=== PATIENT | female | born 1985 | race American Indian/Alaskan Native ===

== ENCOUNTER 2019-03-22 15:30 | Observation (INO) | payer OTHER ==
--- NOTE | 2019-03-22 15:50 | Emergency Department Report ---
Blank Doc - Documentation Documentation: 34-year-old female that presents with weakness, dizziness, SOB, and vaginal di scharge. This initial assessment/diagnostic orders/clinical plan/treatment(s) is/are subject to change based on patient's health status, clinical progression and re- assessment by fellow clinical providers in the ED. Further treatment and workup at subsequent clinical providers discretion. Patient/guardians urged not to elope from the ED as their condition may be serious if not clinically assessed and managed. Initial orders include: 1- Patient sent to [facility] for further evaluation and treatment 2- EKG 3- labs 4- UA
[2019-03-22 16:30] LABS: Mean Corpuscular HGB Conc 35 % (30-34); Platelet Count 198 K/mm3 (140-440); Red Blood Count 1.55 M/mm3 (3.65-5.03)
[2019-03-22 16:35] LABS: Hematocrit 17.2 % (30.3-42.9); Mean Corpuscular Volume 111 fl (79-97); Red Cell Distribution Width 36.5 % (13.2-15.2)
[2019-03-22 16:54] LABS: Alanine Aminotransferase 32 units/L (7-56); Albumin 4.5 g/dL (3.9-5); BUN/Creatinine Ratio 13; Blood Urea Nitrogen 10 mg/dL (7-17); Calcium 9.4 mg/dL (8.4-10.2); Hemolysis Index 8
[2019-03-22 18:06] LABS: Basophils % (Manual) 0 % (0.0-1.8); Total Cells Counted 100
[2019-03-22 18:08] LABS: Anisocytosis 2+; Platelet Estimate Consistent w Auto
[2019-03-22 18:09] LABS: Macrocytosis 1+; Tear Drop Cells 1+
[2019-03-22] MEDS ORDERED: SODIUM CHLORIDE 0.9% 500 ML 500 ML IV ONE (19:04)
[2019-03-22 19:16] LABS: HCG Qualitative,Urine Negative (Negative)
[2019-03-22 19:17] LABS: Bacteria,Urine 2+ /HPF (Negative); Bilirubin,Urine SM (Negative); Blood,Urine SM (Negative); Color,Urine Amber (Yellow); Mucus,Urine 3+ /HPF
[2019-03-22 19:26] LABS: Ictotest,Urine Negative (Negative)
[2019-03-22] MEDS ORDERED: cefTRIAXone/NS 1 GM/50 ML 1 GM/50 ML BAG IV ONE (19:51)
--- NOTE | 2019-03-22 19:53 | Emergency Department Report ---
ED Shortness of Breath HPI - General Chief Complaint: Dyspnea/Respdistress Stated Complaint: SARAH/COUGH/VAGINAL DISCHARGE Time Seen by Provider: 03/22/19 15:48 Source: patient, EMS Mode of arrival: Ambulatory Limitations: No Limitations - History of Present Illness Initial Comments: 34 year old female with no known past medical history presents to the hospital complaining additionally exertion for the past 4 days and vaginal discharge times one week. Dyspnea is worse on exertion. She denies chest pain, calf tenderness, history of PE/DVT, control/hormonal therapy, iron deficiency anemia, melena, hematochezia, or heavy menses. Last menstrual cycle was 02/26/2019. Patient complains of malodorous yellow discharge times one week. She is sexually active with 1 partner and occasionally uses condoms. - Related Data Allergies Allergy/AdvReac Type Severity Reaction Status Date / Time No Known Allergies Allergy Unverified 03/22/19 15:42 ED Review of Systems ROS: Stated complaint: SARAH/COUGH/VAGINAL DISCHARGE Other details as noted in HPI Comment: All other systems reviewed and negative ED Past Medical Hx - Past Medical History Previous Medical History?: No - Surgical History Additional Surgical History: - Social History Smoking Status: Never Smoker Substance Use Type: None ED Physical Exam - General Limitations: No Limitations - Other Other exam information: General: No acute distress Head: Atraumatic Eyes: normal appearance ENT: Moist mucous membranes Neck: Normal appearance, no midline tenderness Chest: Clear to auscultation bilaterally CV: Regular rate and rhythm Abdomen: Soft, normal bowel sounds, nontender, nondistended, no rebound or guarding Rectal: Guaiac negative brown stool : White vaginal discharge, no CMT or adnexal tenderness Back: Normal inspection Extremity: Normal inspection infection, full range of motion Neuro: Alert O x 3, no facial asymmetry, speech clear, no gross motor sensory deficit Psych: Appropriate behavior Skin: No rash ED Course Vital Signs 03/22/19 03/22/19 03/22/19 15:51 18:55 19:16 Temperature 98.0 F Pulse Rate 90 87 81 Respiratory 18 16 14 Rate Blood Pressure 109/59 103/57 Blood Pressure 103/57 [Left] O2 Sat by Pulse 100 100 Oximetry 03/22/19 19:45 Temperature Pulse Rate 85 Respiratory 16 Rate Blood Pressure 102/41 Blood Pressure [Left] O2 Sat by Pulse 100 Oximetry ED Medical Decision Making - Lab Data Result diagrams: 03/22/19 16:13 03/22/19 16:13 Lab Results 03/22/19 03/22/19 03/22/19 Range/Units 16:13 16:13 Unknown WBC 5.2 (4.5-11.0) K/mm3 RBC 1.55 L (3.65-5.03) M/mm3 Hgb 6.0 L (10.1-14.3) gm/dl Hct 17.2 L* (30.3-42.9) % MCV 111 H (79-97) fl MCH 39 H (28-32) pg MCHC 35 H (30-34) % RDW 36.5 H (13.2-15.2) % Plt Count 198 (140-440) K/mm3 Add Manual Diff Complete Total Counted 100 Seg Neuts % (Manual) 71.0 H (40.0-70.0) % Band Neutrophils % 0 % Lymphocytes % (Manual) 26.0 (13.4-35.0) % Reactive Lymphs % (Man) 0 % Monocytes % (Manual) 2.0 (0.0-7.3) % Eosinophils % (Manual) 1.0 (0.0-4.3) % Basophils % (Manual) 0 (0.0-1.8) % Metamyelocytes % 0 % Myelocytes % 0 % Promyelocytes % 0 % Blast Cells % 0 % Nucleated RBC % Not Reportable Seg Neutrophils # Man 3.7 (1.8-7.7) K/mm3 Band Neutrophils # 0.0 K/mm3 Lymphocytes # (Manual) 1.4 (1.2-5.4) K/mm3 Abs React Lymphs (Man) 0.0 K/mm3 Monocytes # (Manual) 0.1 (0.0-0.8) K/mm3 Eosinophils # (Manual) 0.1 (0.0-0.4) K/mm3 Basophils # (Manual) 0.0 (0.0-0.1) K/mm3 Metamyelocytes # 0.0 K/mm3 Myelocytes # 0.0 K/mm3 Promyelocytes # 0.0 K/mm3 Blast Cells # 0.0 K/mm3 WBC Morphology Not Reportable Hypersegmented Neuts Not Reportable Hyposegmented Neuts Not Reportable Hypogranular Neuts Not Reportable Smudge Cells Not Reportable Toxic Granulation Not Reportable Toxic Vacuolation Not Reportable Dohle Bodies Not Reportable Pelger-Huet Anomaly Not Reportable Justin Rods Not Reportable Platelet Estimate Consistent w auto Clumped Platelets Not Reportable Plt Clumps, EDTA Not Reportable Large Platelets Not Reportable Giant Platelets Not Reportable Platelet Satelliting Not Reportable Plt Morphology Comment Not Reportable RBC Morphology Not Reportable Dimorphic RBCs Not Reportable Polychromasia Not Reportable Hypochromasia Not Reportable Poikilocytosis Not Reportable Anisocytosis 2+ Microcytosis Few Macrocytosis 1+ Spherocytes Not Reportable Pappenheimer Bodies Not Reportable Sickle Cells Not Reportable Target Cells Not Reportable Tear Drop Cells 1+ Ovalocytes Not Reportable Helmet Cells Not Reportable Alejandro-Marianne Bodies Not Reportable [place] Rings Not Reportable Maria L Cells Not Reportable Bite Cells Not Reportable Crenated Cell Not Reportable Elliptocytes 1+ Acanthocytes (Spur) Not Reportable Rouleaux Not Reportable Hemoglobin C Crystals Not Reportable Schistocytes Not Reportable Malaria parasites Not Reportable Alexis Bodies Not Reportable Hem Pathologist Commnt No Sodium 140 (137-145) mmol/L Potassium 3.6 (3.6-5.0) mmol/L Chloride 102.2 (98-107) mmol/L Carbon Dioxide 20 L (22-30) mmol/L Anion Gap 21 mmol/L BUN 10 (7-17) mg/dL Creatinine 0.8 (0.7-1.2) mg/dL Estimated GFR > 60 ml/min BUN/Creatinine Ratio 13 % Glucose 93 (65-100) mg/dL Calcium 9.4 (8.4-10.2) mg/dL Total Bilirubin 1.30 H (0.1-1.2) mg/dL AST 76 H (5-40) units/L ALT 32 (7-56) units/L Alkaline Phosphatase 41 (35-129) units/L Total Protein 7.9 (6.3-8.2) g/dL Albumin 4.5 (3.9-5) g/dL Albumin/Globulin Ratio 1.3 % Urine Color Jackie (Yellow) Urine Turbidity Slightly-cloudy (Clear) Urine pH 5.0 (5.0-7.0) Ur Specific [place] 1.023 (1.003-1.030) Urine Protein 100 mg/dl (Negative) mg/dL Urine Glucose (UA) Neg (Negative) mg/dL Urine Ketones 20 (Negative) mg/dL Urine Blood Sm (Negative) Urine Nitrite Pos (Negative) Ur Reducing Substances Not Reportable Urine Bilirubin Sm (Negative) Urine Ictotest Negative (Negative) Urine Urobilinogen 4.0 (<2.0) mg/dL Ur Leukocyte Esterase Tr (Negative) Urine WBC (Auto) 11.0 H (0.0-6.0) /HPF Urine RBC (Auto) 1.0 (0.0-6.0) /HPF U Epithel Cells (Auto) 3.0 (0-13.0) /HPF Urine Bacteria (Auto) 2+ (Negative) /HPF Urine Mucus 3+ /HPF Urine HCG, Qual Negative (Negative) - Medical Decision Making Patient symptomatic anemia generalized weakness and dyspnea on exertion. 2 units of PRBC ordered. Guaiac negative without signs of acute blood loss. UA positive for UTI Rocephin ordered po flagyl initiated for bacterial vaginosis Hospitalist to admit, Dr Zepeda informed - Differential Diagnosis anemia, pe, chf, vaginitis, cervicitis Critical Care Time: No Critical care attestation.: If time is entered above; I have spent that time in minutes in the direct care of this critically ill patient, excluding procedure time. ED Disposition Clinical Impression: Symptomatic anemia, UTI (urinary tract infection), Bacterial vaginosis Disposition: OP ADMIT IP TO THIS HOSP Is pt being admited?: Yes Condition: Stable Time of Disposition: 19:53
[2019-03-22 19:58] LABS: Iron 78 ug/dL (37-170); Total Iron Binding Capacity 187 mcg/dL (250-450)
[2019-03-22] MEDS ORDERED: metroNIDAZOLE 500 MG TAB PO ONE (19:59)
--- NOTE | 2019-03-22 20:02 | XRay Report ---
CHEST 2 VIEWS INDICATION / CLINICAL INFORMATION: sob. COMPARISON: None available. FINDINGS: SUPPORT DEVICES: None. HEART / MEDIASTINUM: No significant abnormality. LUNGS / PLEURA: No significant pulmonary or pleural abnormality. No pneumothorax. ADDITIONAL FINDINGS: No significant additional findings. IMPRESSION: 1. No acute findings. Signer Name: Yumiko Abdul MD Signed: 03/22/2019 7:58 PM Workstation Name: [id number]
[2019-03-22] MEDS ORDERED: SULFAMETHOXAZOLE/TRIMETHOPRIM 800/160MG DS TAB PO ONE (20:06)
[2019-03-22] MEDS ORDERED: ONDANSETRON 4 MG/2 ML INJ IV PRN (21:27)
[2019-03-22] MEDS ORDERED: ACETAMINOPHEN 325 MG TAB PO PRN (21:27)
[2019-03-22] MEDS ORDERED: ALBUTEROL 2.5 MG/3 ML NEBU IH PRN (21:27)
--- NOTE | 2019-03-22 21:31 | History and Physical Report ---
History of Present Illness Date of examination: 03/22/19 Date of admission: 03/22/19 19:54 Chief complaint: SOB, Weakness History of present illness: 34-year-old -Romanian female with no significant past medical history who presents to [facility] ED with complaints of shortness of breath with exertion, generalized weakness for the past 4 days and malodorous vaginal which is yellow at times for the past week. Pt states that over the past 4 days she has experienced SOB with exertion and generalized weakness. Her weakness has gotten worse and she was unable to go to work today for do anything. Denies hx anemia, CP, calf pain, fever, hemoptysis, or hematemesis. Additionally she complains of malodorous vaginal which is yellow at times. Pt states that she is sexually active with one partner with occasional use of condoms. Denies vaginal itching, dysuria, or pyuria. Past History Past Medical History: No medical history Past Surgical History: (x2), Other Social history: lives with family. denies: smoking, alcohol abuse Family history: no significant family history Medications and Allergies Allergies Allergy/AdvReac Type Severity Reaction Status Date / Time Penicillins Allergy Unknown Verified 03/22/19 20:05 Review of Systems All systems: negative Constitutional: fatigue, weakness Cardiovascular: dyspnea on exertion Respiratory: cough Genitourinary Female: vaginal discharge (Malodorous yellow at times discharge) Exam - Physical Exam Narrative exam: Physical exam General appearance: Present: Fatigued looking, no acute distress, awake, oriented x3, adult -Romanian female - EENT Eyes: Present: PERRL, EOM intact ENT: hearing intact, normal dentition - Neck Neck: Present: supple, normal ROM - Respiratory Respiratory effort: Non-labored Respiratory: Clear throughout - Cardiovascular Heart rate: 80 (bpm) Rhythm: Sinus sinus Heart Sounds: Present: S1 & S2. Absent: rub, click - Extremities Extremities: no ischemia, pulses intact, - Peripheral Assessment Peripheral Pulses: within normal limits - Abdominal General gastrointestinal: soft, non-tender, normal bowel sounds - Integumentary Integumentary: Present: warm, dry - Musculoskeletal Musculoskeletal: Able to move all extremities, generalized weakness -Neurological Neurological: CN II-XII intact - Psychiatric Psychiatric: cooperative - Constitutional Vitals: Temp Pulse Resp BP Pulse Ox 98.0 F 85 16 102/41 100 03/22/19 15:51 03/22/19 19:45 03/22/19 19:45 03/22/19 19:45 03/22/19 19:45 Results - Labs CBC & Chem 7: 03/22/19 16:13 03/22/19 16:13 Labs: Laboratory Last Values WBC 5.2 K/mm3 (4.5-11.0) 03/22/19 16:13 RBC 1.55 M/mm3 (3.65-5.03) L 03/22/19 16:13 Hgb 6.0 gm/dl (10.1-14.3) L 03/22/19 16:13 Hct 17.2 % (30.3-42.9) L* 03/22/19 16:13 MCV 111 fl (79-97) H 03/22/19 16:13 MCH 39 pg (28-32) H 03/22/19 16:13 MCHC 35 % (30-34) H 03/22/19 16:13 RDW 36.5 % (13.2-15.2) H 03/22/19 16:13 Plt Count 198 K/mm3 (140-440) 03/22/19 16:13 Add Manual Diff Complete 03/22/19 16:13 Total Counted 100 03/22/19 16:13 Seg Neuts % (Manual) 71.0 % (40.0-70.0) H 03/22/19 16:13 Band Neutrophils % 0 % 03/22/19 16:13 Lymphocytes % (Manual) 26.0 % (13.4-35.0) 03/22/19 16:13 Reactive Lymphs % (Man) 0 % 03/22/19 16:13 Monocytes % (Manual) 2.0 % (0.0-7.3) 03/22/19 16:13 Eosinophils % (Manual) 1.0 % (0.0-4.3) 03/22/19 16:13 Basophils % (Manual) 0 % (0.0-1.8) 03/22/19 16:13 Metamyelocytes % 0 % 03/22/19 16:13 Myelocytes % 0 % 03/22/19 16:13 Promyelocytes % 0 % 03/22/19 16:13 Blast Cells % 0 % 03/22/19 16:13 Nucleated RBC % Not Reportable 03/22/19 16:13 Seg Neutrophils # Man 3.7 K/mm3 (1.8-7.7) 03/22/19 16:13 Band Neutrophils # 0.0 K/mm3 03/22/19 16:13 Lymphocytes # (Manual) 1.4 K/mm3 (1.2-5.4) 03/22/19 16:13 Abs React Lymphs (Man) 0.0 K/mm3 03/22/19 16:13 Monocytes # (Manual) 0.1 K/mm3 (0.0-0.8) 03/22/19 16:13 Eosinophils # (Manual) 0.1 K/mm3 (0.0-0.4) 03/22/19 16:13 Basophils # (Manual) 0.0 K/mm3 (0.0-0.1) 03/22/19 16:13 Metamyelocytes # 0.0 K/mm3 03/22/19 16:13 Myelocytes # 0.0 K/mm3 03/22/19 16:13 Promyelocytes # 0.0 K/mm3 03/22/19 16:13 Blast Cells # 0.0 K/mm3 03/22/19 16:13 WBC Morphology Not Reportable 03/22/19 16:13 Hypersegmented Neuts Not Reportable 03/22/19 16:13 Hyposegmented Neuts Not Reportable 03/22/19 16:13 Hypogranular Neuts Not Reportable 03/22/19 16:13 Smudge Cells Not Reportable 03/22/19 16:13 Toxic Granulation Not Reportable 03/22/19 16:13 Toxic Vacuolation Not Reportable 03/22/19 16:13 Dohle Bodies Not Reportable 03/22/19 16:13 Pelger-Huet Anomaly Not Reportable 03/22/19 16:13 Justin Rods Not Reportable 03/22/19 16:13 Platelet Estimate Consistent w auto 03/22/19 16:13 Clumped Platelets Not Reportable 03/22/19 16:13 Plt Clumps, EDTA Not Reportable 03/22/19 16:13 Large Platelets Not Reportable 03/22/19 16:13 Giant Platelets Not Reportable 03/22/19 16:13 Platelet Satelliting Not Reportable 03/22/19 16:13 Plt Morphology Comment Not Reportable 03/22/19 16:13 RBC Morphology Not Reportable 03/22/19 16:13 Dimorphic RBCs Not Reportable 03/22/19 16:13 Polychromasia Not Reportable 03/22/19 16:13 Hypochromasia Not Reportable 03/22/19 16:13 Poikilocytosis Not Reportable 03/22/19 16:13 Anisocytosis 2+ 03/22/19 16:13 Microcytosis Few 03/22/19 16:13 Macrocytosis 1+ 03/22/19 16:13 Spherocytes Not Reportable 03/22/19 16:13 Pappenheimer Bodies Not Reportable 03/22/19 16:13 Sickle Cells Not Reportable 03/22/19 16:13 Target Cells Not Reportable 03/22/19 16:13 Tear Drop Cells 1+ 03/22/19 16:13 Ovalocytes Not Reportable 03/22/19 16:13 Helmet Cells Not Reportable 03/22/19 16:13 Alejandro-Saunemin Bodies Not Reportable 03/22/19 16:13 [place] Rings Not Reportable 03/22/19 16:13 Maria L Cells Not Reportable 03/22/19 16:13 Bite Cells Not Reportable 03/22/19 16:13 Crenated Cell Not Reportable 03/22/19 16:13 Elliptocytes 1+ 03/22/19 16:13 Acanthocytes (Spur) Not Reportable 03/22/19 16:13 Rouleaux Not Reportable 03/22/19 16:13 Hemoglobin C Crystals Not Reportable 03/22/19 16:13 Schistocytes Not Reportable 03/22/19 16:13 Malaria parasites Not Reportable 03/22/19 16:13 Alexis Bodies Not Reportable 03/22/19 16:13 Hem Pathologist Commnt No 03/22/19 16:13 Sodium 140 mmol/L (137-145) 03/22/19 16:13 Potassium 3.6 mmol/L (3.6-5.0) 03/22/19 16:13 Chloride 102.2 mmol/L (98-107) 03/22/19 16:13 Carbon Dioxide 20 mmol/L (22-30) L 03/22/19 16:13 Anion Gap 21 mmol/L 03/22/19 16:13 BUN 10 mg/dL (7-17) 03/22/19 16:13 Creatinine 0.8 mg/dL (0.7-1.2) 03/22/19 16:13 Estimated GFR > 60 ml/min 03/22/19 16:13 BUN/Creatinine Ratio 13 % 03/22/19 16:13 Glucose 93 mg/dL (65-100) 03/22/19 16:13 Calcium 9.4 mg/dL (8.4-10.2) 03/22/19 16:13 Iron 78 ug/dL (37-170) 03/22/19 19:22 TIBC 187 mcg/dL (250-450) L 03/22/19 19:22 Total Bilirubin 1.30 mg/dL (0.1-1.2) H 03/22/19 16:13 AST 76 units/L (5-40) H 03/22/19 16:13 ALT 32 units/L (7-56) 03/22/19 16:13 Alkaline Phosphatase 41 units/L (35-129) 03/22/19 16:13 Total Protein 7.9 g/dL (6.3-8.2) 03/22/19 16:13 Albumin 4.5 g/dL (3.9-5) 03/22/19 16:13 Albumin/Globulin Ratio 1.3 % 03/22/19 16:13 Urine Color Jackie (Yellow) 03/22/19 Unknown Urine Turbidity Slightly-cloudy (Clear) 03/22/19 Unknown Urine pH 5.0 (5.0-7.0) 03/22/19 Unknown Ur Specific [place] 1.023 (1.003-1.030) 03/22/19 Unknown Urine Protein 100 mg/dl mg/dL (Negative) 03/22/19 Unknown Urine Glucose (UA) Neg mg/dL (Negative) 03/22/19 Unknown Urine Ketones 20 mg/dL (Negative) 03/22/19 Unknown Urine Blood Sm (Negative) 03/22/19 Unknown Urine Nitrite Pos (Negative) 03/22/19 Unknown Ur Reducing Substances Not Reportable 03/22/19 Unknown Urine Bilirubin Sm (Negative) 03/22/19 Unknown Urine Ictotest Negative (Negative) 03/22/19 Unknown Urine Urobilinogen 4.0 mg/dL (<2.0) 03/22/19 Unknown Ur Leukocyte Esterase Tr (Negative) 03/22/19 Unknown Urine WBC (Auto) 11.0 /HPF (0.0-6.0) H 03/22/19 Unknown Urine RBC (Auto) 1.0 /HPF (0.0-6.0) 03/22/19 Unknown U Epithel Cells (Auto) 3.0 /HPF (0-13.0) 03/22/19 Unknown Urine Bacteria (Auto) 2+ /HPF (Negative) 03/22/19 Unknown Urine Mucus 3+ /HPF 03/22/19 Unknown Urine HCG, Qual Negative (Negative) 03/22/19 Unknown Blood Type O POSITIVE 03/22/19 19:22 Antibody Screen Positive 03/22/19 19:22 Crossmatch See Detail 03/22/19 19:22 - Imaging and Cardiology Imaging and Cardiology: CXR: FINDINGS: SUPPORT DEVICES: None. HEART / MEDIASTINUM: No significant abnormality LUNGS / PLEURA: No significant pulmonary or pleural abnormality. No pneumothorax. ADDITIONAL FINDINGS: No significant additional findings. IMPRESSION: 1. No acute findings. Assessment and Plan Assessment and plan: 34-year-old -Romanian female with no significant past medical history who presents to [facility] ED with complaints of shortness of breath with exertion, generalized weakness for the past 4 days and malodorous vaginal which is yellow at times for the past week. Pt was found to be anemic and is symptomatic. Will admit for further evaluation and treatment. Anemia -Hemoglobin on admission 6.0 -Symptomatic -2u PRBC ordered in ED -No s/s of active bleeding -Last menstrual cycle 02/26/2019; Denies hx menorrhagia -Continue to monitor hemoglobin -Transfuse as needed Urinary tract infection -UA positive for UTI -Urine wbc 11, Jackie, Slightly cloudy -Urine culture pending -on IV Rocephin Bacterial vaginosis -C/o malodorous vaginal which is yellow at times -Wet prep negative for Trichomonas and yeast -GC and Chlamydia pending -Received p.o. Flagyl in ED -On IV ABX DVT PPX -On SCD's Advance Directives: No VTE prophylaxis?: Mechanical Plan of care discussed with patient/family: Yes
[2019-03-23] MEDS ORDERED: SODIUM CHLORIDE 0.9% 500 ML 500 ML ONE (00:59)
[2019-03-23] MEDS: DOCUSATE SODIUM 100 MG CAP PO SCH ×3 (00:59→21:39)
[2019-03-23 08:44] LABS: Mean Corpuscular HGB Conc 35 % (30-34); Platelet Count 162 K/mm3 (140-440); Red Blood Count 1.32 M/mm3 (3.65-5.03)
[2019-03-23 08:49] LABS: Hemoglobin 5.3 gm/dl (10.1-14.3); Mean Corpuscular Volume 113 fl (79-97); Red Cell Distribution Width 37.3 % (13.2-15.2)
[2019-03-23 09:08] LABS: BUN/Creatinine Ratio 11; Blood Urea Nitrogen 9 mg/dL (7-17); Calcium 8.8 mg/dL (8.4-10.2); Hemolysis Index 3
[2019-03-23 09:12] LABS: Bilirubin,Direct 0.2 mg/dL (0-0.2)
[2019-03-23] MEDS ORDERED: cefTRIAXone/NS 1 GM/50 ML 1 GM/50 ML BAG IV SCH (10:00)
[2019-03-23 10:05] LABS: Anisocytosis 3+; Basophils % (Manual) 0 % (0.0-1.8); Eosinophils % (Manual) 0 % (0.0-4.3); Macrocytosis 1+; Monocytes % (Manual) 0 % (0.0-7.3); Total Cells Counted 100
[2019-03-23 10:06] LABS: Tear Drop Cells 1+
[2019-03-23 10:10] LABS: Platelet Estimate Consistent w Auto
--- NOTE | 2019-03-23 11:12 | Discharge Summary ---
Providers - Providers Date of Admission: 03/22/19 19:54 Attending physician: SHYANNE BOYKIN MD Primary care physician: [facility]ATOR [facility] Hospitalization Reason for admission: anemia Condition: Stable Hospital course: 34-year-old -Mongolian female with no significant past medical history who presents to [facility] ED with complaints of shortness of breath with exertion, gene ralized weakness for the past 4 days and malodorous vaginal which is yellow at times for the past week. Pt states that over the past 4 days she has experienced SOB with exertion and generalized weakness. Her weakness has gotten worse and she was unable to go to work today for do anything. Denies hx anemia, CP, calf pain, fever, hemoptysis, or hematemesis. Additionally she complains of malodorous vaginal which is yellow at times. Pt states that she is sexually active with one partner with occasional use of condoms. Denies vaginal itching, dysuria, or pyuria. recommended to follow with RN ENDOSCOPY, HEMATOLOGY AND GI Symptomatic anemia -Hemoglobin on admission 6.0 -2u PRBC transfused -No s/s of active bleeding -Last menstrual cycle 02/26/2019; Denies hx menorrhagia -prior transfusion during child 15 years ago, since then has not followed with a doctor. -stressed the importance of following up -clinically stable following transfusion Urinary tract infection -UA positive for UTI -Urine wbc 11, Jackie, Slightly cloudy -Urine culture pending -on IV Rocephin Bacterial vaginosis -C/o malodorous vaginal which is yellow at times -Wet prep negative for Trichomonas and yeast -GC and Chlamydia pending -Received p.o. Flagyl in ED -cultures negative. Discharged on orab abx with flagyl and Augmentin Disposition: DC-01 TO HOME OR SELFCARE Time spent for discharge: 35 mins Core Measure Documentation - Palliative Care Palliative Care/ Comfort Measures: Not Applicable - Core Measures Any of the following diagnoses?: none Exam - Constitutional Vitals: Temp Pulse Resp BP Pulse Ox 98.5 F 84 16 104/51 100 03/23/19 09:59 03/23/19 09:59 03/23/19 09:59 03/23/19 09:59 03/23/19 09:59 General appearance: Present: no acute distress, well-nourished - EENT Eyes: Present: PERRL, EOM intact ENT: hearing intact, clear oral mucosa, dentition normal - Neck Neck: Present: supple, normal ROM - Respiratory Respiratory effort: normal Respiratory: bilateral: CTA - Cardiovascular Rhythm: regular - Extremities Extremities: no ischemia, No edema Peripheral Pulses: within normal limits - Abdominal General gastrointestinal: Present: soft, non-tender, non-distended - Integumentary Integumentary: Present: clear, warm, dry - Musculoskeletal Musculoskeletal: strength equal bilaterally - Psychiatric Psychiatric: appropriate mood/affect, intact judgment & insight - Neurologic Neurologic: CNII-XII intact, moves all extremities - Allied Health Allied health notes reviewed: nursing, social work Plan Activity: advance as tolerated, fall precautions Diet: low fat Special Instructions: record daily BP diary Follow up with: PRIMARY CAREMD [Primary Care Provider] - 7 Days RUBENS DUKES MD [Staff Physician] - 7 Days [facility] [Outside] - 7 Days JADON GARCIA MD [Staff Physician] - 7 Days Forms: STI Treatment and Prevention Prescriptions: Cyanocobalamin (Vitamin B-12) [Vitamin B-12] 2,000 mcg PO DAILY #30 tablet
[2019-03-23 21:52] LABS: Hematocrit 26.5 % (30.3-42.9)
[2019-03-24 00:17] VITALS: BP 97/61
== END 2019-03-24 | disposition home or self-care (01) ==
LOC: ED 15:30 → 3A 19:54
PROVIDERS: ADMIT Internal Medicine; ATTEND Internal Medicine
DX: D64.9 Anemia, unspecified (principal); R06.02 Shortness of breath; N39.0 Urinary tract infection, site not specified; N76.0 Acute vaginitis; Z98.891 History of uterine scar from previous surgery
CPT/HCPCS: 36415; 71046; 80048; 80053; 81001; 81025; 82247; 82248; 82271; 83010; 83550; 85007; 85014; 85018; 85025; 86850; 86870; 86900; 86901; 86920; 86922; 87076; 87086; 87186; 87210; 87591; 93005; 93010; 96365; 99284; G0378; J0696; J7040

== ENCOUNTER 2019-04-09 16:57 | Observation (INO) | payer OTHER ==
--- NOTE | 2019-04-09 17:30 | Emergency Department Report ---
Blank Doc - Documentation Documentation: 34-year-old female that presents with generalized weakness x3 days. This initial assessment/diagnostic orders/clinical plan/treatment(s) is/are subject to change based on patient's health status, clinical progression and re- assessment by fellow clinical providers in the ED. Further treatment and workup at subsequent clinical providers discretion. Patient/guardians urged not to elope from the ED as their condition may be serious if not clinically assessed and managed. Initial orders include: 1- Patient sent to [facility] for further evaluation and treatment 2- labs 3- UA
[2019-04-09 19:24] LABS: Hemoglobin 6.2 gm/dl (10.1-14.3); Mean Corpuscular HGB Conc 36 % (30-34); Mean Corpuscular Volume 92 fl (79-97); Platelet Count 227 K/mm3 (140-440); Red Blood Count 1.89 M/mm3 (3.65-5.03)
[2019-04-09 19:33] LABS: Hematocrit 17.3 % (30.3-42.9)
[2019-04-09 19:44] LABS: BUN/Creatinine Ratio 15; Blood Urea Nitrogen 12 mg/dL (7-17); Calcium 9.5 mg/dL (8.4-10.2); Hemolysis Index 3
--- NOTE | 2019-04-09 20:06 | Emergency Department Report ---
HPI - General Chief Complaint: Weakness Time Seen by Provider: 04/09/19 17:29 - HPI HPI: 34-year-old -M[place]ese female presents to the emergency department with the complaint of a 3 day history of some generalized weakness and fatigue and shortness of breath. The patient has a history of anemia and was admitted to this hospital about 3 weeks ago with similar symptoms and was found to have hemoglobin of 6. She was admitted and had 2 units of packed red blood cells transfused at that time. The patient otherwise says she does not know why she is anemic. She denies any heavy vaginal bleeding or menstrual cycles, rectal bleeding. She denies any fever, chest pain. She has not taken anything for her symptoms prior to presentation. No recent travel or sick contacts at home. She does not have a primary care physician. ED Past Medical Hx - Past Medical History Previous Medical History?: Yes Hx Congestive Heart Failure: No Hx Diabetes: No Hx Asthma: No Hx COPD: No Hx HIV: No Additional medical history: anemia - Surgical History Past Surgical History?: Yes Additional Surgical History: - Social History Smoking Status: Never Smoker Substance Use Type: None - Medications Home Medications: Home Medications Medication Instructions Recorded Confirmed Last Taken Type Cyanocobalamin (Vitamin B-12) 2,000 mcg PO DAILY 04/10/19 04/10/19 Unknown History [Vitamin B-12] ED Review of Systems ROS: Stated complaint: GENERAL WEAKNESS Other details as noted in HPI Comment: All other systems reviewed and negative Constitutional: weakness, other (fatigue). denies: chills, fever Eyes: denies: eye pain, vision change ENT: denies: ear pain, throat pain Respiratory: shortness of breath, SOB with exertion. denies: cough Cardiovascular: denies: chest pain, edema Gastrointestinal: denies: abdominal pain, vomiting Genitourinary: denies: dysuria, discharge Musculoskeletal: denies: back pain, arthralgia Skin: denies: rash, lesions Neurological: denies: headache, numbness, paresthesias Physical Exam - Physical Exam Vital Signs: Vital Signs 04/09/19 17:02 Temperature 98.3 F Pulse Rate 105 H Respiratory 16 Rate Blood Pressure 103/58 O2 Sat by Pulse 97 Oximetry Physical Exam: GENERAL: The patient is well-developed well-nourished. HEENT: Normocephalic. Atraumatic. Patient has moist mucous membranes. EYES: Extraocular motions are intact. Pupils equal and reactive to light bi laterally. Pale conjunctiva. NECK: Supple. Trachea is midline. CHEST/LUNGS: Clear to auscultation. There is no respiratory distress noted. HEART/CARDIOVASCULAR: Regular. There is mild tachycardia. There is no murmur. ABDOMEN: Abdomen is soft, nontender. Patient has normal bowel sounds. There is no abdominal distention. SKIN:Skin is warm and dry. . NEURO: The patient is awake, alert, and oriented. The patient is cooperative. The patient has no focal neurologic deficits. Normal speech. MUSCULOSKELETAL: There is no tenderness or deformity. There is no evidence of acute injury. ED Course Vital Signs 04/09/19 17:02 Temperature 98.3 F Pulse Rate 105 H Respiratory 16 Rate Blood Pressure 103/58 O2 Sat by Pulse 97 Oximetry ED Medical Decision Making - Lab Data Result diagrams: 04/09/19 18:28 04/09/19 18:28 - EKG Data -: EKG Interpreted by Me EKG shows normal: sinus rhythm, axis, intervals, QRS complexes, ST-T waves Rate: normal - EKG Data When compared to previous EKG there are: previous EKG unavailable Interpretation: normal EKG - Radiology Data Radiology results: image reviewed interpreted by me: Chest x-ray does not show any pleural effusions, pneumonia, pneumothorax, focal consolidation, or any other acute process. - Medical Decision Making Patient presents with some nonspecific fatigue and weakness as well as some exertional shortness of breath. She has a history of anemia and received a transfusion about 3 weeks ago at this hospital. Once again, today, the patient has symptomatic anemia with a hemoglobin of 6.2 and a hematocrit of 17 and a ppears to be normocytic. 2 units of packed red blood cells have been ordered for transfusion. Chest x-ray did not show any pneumonia, pneumothorax, pleural effusions, or any other acute process. The rest of the patient's labs have been unremarkable. She will be admitted to the hospital for her transfusion and further evaluation and was accepted for admission by the hospitalist, Dr Diamond. - Differential Diagnosis iron deficiency, B12 deficiency, Beta Thalasemmia Critical Care Time: Yes Critical care time in (mins) excluding proc time.: 31 Critical care attestation.: If time is entered above; I have spent that time in minutes in the direct care of this critically ill patient, excluding procedure time. Critical care time was spent on this patient and doing her initial evaluation, multiple re- evaluations, ordering an interpretation of labs and imaging, ordering of blood for transfusion, discussion with the hospitalist service. Critical Care Time: 31 minutes ED Disposition Clinical Impression: Symptomatic anemia, Anemia requiring transfusions Disposition: OP ADMIT IP TO THIS HOSP Is pt being admited?: Yes Condition: Fair Time of Disposition: 21:24
[2019-04-09 20:35] LABS: Basophils % (Manual) 0 % (0.0-1.8); Eosinophils % (Manual) 0 % (0.0-4.3); Macrocytosis 1+; Myelocytes # (Manual) 0.1 K/mm3; Total Cells Counted 100
[2019-04-09 20:37] LABS: Hypochromasia 2+; Ovalocytes 1+; Tear Drop Cells 1+
[2019-04-09 20:38] LABS: Dimorphic RBC Yes; Large Platelets 1+; Platelet Estimate Consistent w Auto; Schistocytes 1+
[2019-04-09 20:40] LABS: Eosinophils % (Auto) 0.3 % (0.0-4.3); Monocytes # (Auto) 0.3 K/mm3 (0.0-0.8)
[2019-04-09 20:44] LABS: Red Cell Distribution Width > 40.0 % (13.2-15.2)
--- NOTE | 2019-04-09 20:56 | XRay Report ---
CHEST 1 VIEW 8:26 PM INDICATION / CLINICAL INFORMATION: SOB. COMPARISON: 03/22/2019. FINDINGS: SUPPORT DEVICES: None. HEART / MEDIASTINUM: The heart size and pulmonary vasculature are normal. LUNGS / PLEURA: No significant pulmonary or pleural abnormality. No pneumothorax. ADDITIONAL FINDINGS: No significant additional findings. IMPRESSION: No acute abnormality or significant change. Signer Name: Zac Curiel MD Signed: 04/09/2019 8:52 PM Workstation Name: [id number]
[2019-04-09] MEDS ORDERED: ACETAMINOPHEN 325 MG TAB PO PRN (21:54)
[2019-04-09] MEDS ORDERED: ONDANSETRON 4 MG/2 ML INJ IV PRN (21:54)
[2019-04-09] MEDS ORDERED: MAGNESIUM HYDROXIDE (MOM) ORAL LIQD UDC PO PRN (21:54)
--- NOTE | 2019-04-09 22:54 | History and Physical Report ---
History of Present Illness Date of examination: 04/09/19 Date of admission: 04/09/19 21:24 Chief complaint: Generalized weakness fatigue Fatigue History of present illness: 34-year-old female presenting to the emergency room today complaining of shortness of breath and generalized fatigue over the past few days. She has had occasional dizziness and has had recent fall but denies any head injury. She denies any loss of consciousness. She denies any fever or chills and denies any chest pain. Patient was recently diagnosed with anemia and had blood transfusion recently. She does not follow-up with any primary care physician and she has not been worked up for anemia. She denies any heavy menstruation, but indicates that she has had occasional blood stained stool especially when constipated. She denies any hematuria. Past History Past Surgical History: Social history: no significant social history Family history: diabetes (Mother had diabetes), stroke (Mother had stroke), other (Sister has sickle cell trait) Medications and Allergies Allergies Allergy/AdvReac Type Severity Reaction Status Date / Time Penicillins Allergy Unknown Verified 04/09/19 17:02 Home Medications Medication Instructions Recorded Confirmed Last Taken Type Cyanocobalamin (Vitamin B-12) 2,000 mcg PO DAILY 04/10/19 04/10/19 Unknown History [Vitamin B-12] Active Meds: Active Medications Acetaminophen (Tylenol) 650 mg PO Q4H PRN PRN Reason: Pain MILD(1-3)/Fever >100.5/GUTIÉRREZ Magnesium Hydroxide (Milk Of Magnesia) 30 ml PO Q4H PRN PRN Reason: Constipation Ondansetron HCl (Zofran) 4 mg IV Q8H PRN PRN Reason: Nausea And Vomiting Sodium Chloride (Sodium Chloride Flush Syringe 10 Ml) 10 ml IV BID CALLIE Sodium Chloride (Sodium Chloride Flush Syringe 10 Ml) 10 ml IV PRN PRN PRN Reason: LINE FLUSH Review of Systems Constitutional: fatigue, weakness Cardiovascular: lightheadedness, shortness of breath Exam - Constitutional Vitals: Temp Pulse Resp BP Pulse Ox 98.3 F 82 17 103/60 100 04/09/19 17:02 04/09/19 21:57 04/09/19 21:57 04/09/19 21:57 04/09/19 21:57 General appearance: Present: no acute distress, well-nourished - EENT Eyes: Present: PERRL, EOM intact ENT: hearing intact, clear oral mucosa, dentition normal - Neck Neck: Present: supple, normal ROM - Respiratory Respiratory effort: normal Respiratory: bilateral: CTA - Cardiovascular Rhythm: regular Heart Sounds: Present: gallop - Extremities Extremities: no ischemia, pulses symmetrical, No edema, Full ROM Peripheral Pulses: within normal limits - Abdominal General gastrointestinal: Present: soft, non-tender, non-distended - Integumentary Integumentary: Present: clear, warm, dry, pale - Musculoskeletal Musculoskeletal: strength equal bilaterally - Psychiatric Psychiatric: appropriate mood/affect, intact judgment & insight, cooperative - Neurologic Neurologic: CNII-XII intact, moves all extremities Results - Labs CBC & Chem 7: 04/09/19 18:28 04/09/19 18:28 Labs: Abnormal lab results 04/09/19 04/09/19 04/09/19 Range/Units 18:28 18:28 20:28 RBC 1.89 L (3.65-5.03) M/mm3 Hgb 6.2 L (10.1-14.3) gm/dl Hct 17.3 L* (30.3-42.9) % MCH 33 H (28-32) pg MCHC 36 H (30-34) % RDW > 40.0 H (13.2-15.2) % Nucleated RBC % 2.0 H (0.0-0.9) % Carbon Dioxide 18 L (22-30) mmol/L Crossmatch See Detail Assessment and Plan - Patient Problems (1) Symptomatic anemia Current Visit: Yes Status: Acute Plan to address problem: Patient has been typed and crossmatched for blood transfusion. Will monitor CBC. Meanwhile patient will be scheduled for anemia work-up including iron studies, stool Hemoccults, vitamin B12 and folic acid levels. We will schedule hematology evaluation if needed. (2) DVT prophylaxis Current Visit: Yes Status: Acute Plan to address problem: Patient placed on sequential compression device. (3) Full code status Current Visit: Yes Status: Acute
[2019-04-09] MEDS ORDERED: SODIUM CHLORIDE 0.9% 500 ML 500 ML IV ONE (23:50)
[2019-04-09] MEDS: SODIUM CHLORIDE 0.9% 500 ML 500 ML IV ONE (23:53)
[2019-04-10] MEDS: SODIUM CHLORIDE 0.9% 500 ML 500 ML IV ONE (00:11)
[2019-04-10 01:32] LABS: Iron 80 ug/dL (37-170); Total Iron Binding Capacity 189 mcg/dL (250-450)
[2019-04-10 11:16] LABS: Hematocrit 20.2 % (30.3-42.9); Hemoglobin 7.3 gm/dl (10.1-14.3); Mean Corpuscular HGB Conc 36 % (30-34); Mean Corpuscular Volume 90 fl (79-97); Platelet Count 188 K/mm3 (140-440); Red Blood Count 2.25 M/mm3 (3.65-5.03)
[2019-04-10 11:22] LABS: Red Cell Distribution Width > 40.0 % (13.2-15.2)
[2019-04-10 11:29] LABS: INR 1.05 (0.87-1.13)
[2019-04-10 11:30] LABS: Partial Thromboplastin Time 30.7 Sec. (24.2-36.6)
[2019-04-10 11:35] LABS: BUN/Creatinine Ratio 20; Blood Urea Nitrogen 14 mg/dL (7-17); Calcium 8.9 mg/dL (8.4-10.2); Hemolysis Index 14
[2019-04-10 12:05] LABS: Basophils % (Manual) 0 % (0.0-1.8); Eosinophils % (Manual) 0 % (0.0-4.3); Total Cells Counted 100
[2019-04-10 12:06] LABS: Macrocytosis 1+
[2019-04-10 12:07] LABS: Anisocytosis 2+; Hypochromasia Few; Large Platelets Few; Ovalocytes 1+; Platelet Estimate Consistent w Auto; Schistocytes Rare; Tear Drop Cells 1+
[2019-04-10 17:29] LABS: Bacteria,Urine 4+ /HPF (Negative); Bilirubin,Urine NEG (Negative); Blood,Urine LG (Negative); Color,Urine Red (Yellow); Mucus,Urine FEW /HPF
--- NOTE | 2019-04-10 18:05 | Progress Note ---
Assessment and Plan Assessment and plan: --Symptomatic anemia; No history of menorrhagia or vaginal bleeding Patient was admitted last month, recommended [facility], hematology, GI follow-up Patient was not compliant Received 1 unit PRBC Transfuse second unit PRBC when available Closely monitor --Urinary tract infection; empiric antibiotics Follow cultures --Red-colored urine; Urine analysis no RBCs[only 4] --DVT prophylaxis; SCDs Monitor closely and adjust management as needed Plan of care reviewed with the patient and her nurse Disposition; discharge home tomorrow after second unit PRBC Patient needs to see [facility]GER/GI/hematology upon discharge For further evaluation History Interval history: Patient seen and examined medical records reviewed Patient was admitted with severe anemia Received 1 unit of PRBC this morning Patient had similar episodes last month Where her hemoglobin was 5 Improved to 9 after transfusion Patient complains of generalized weakness No vaginal bleeding However urine is red color, urine analysis no RBCs Vital signs reviewed Hospitalist Physical - Constitutional Vitals: Temp Pulse Resp BP Pulse Ox 98.3 F 92 H 16 94/49 100 04/10/19 10:58 04/10/19 10:58 04/10/19 10:58 04/10/19 10:58 04/10/19 10:58 General appearance: Present: no acute distress, well-nourished - EENT Eyes: Present: PERRL, EOM intact - Neck Neck: Present: supple, normal ROM - Respiratory Respiratory effort: normal Respiratory: bilateral: diminished, negative: rales, rhonchi, wheezing - Cardiovascular Rhythm: regular Heart Sounds: Present: S1 & S2 - Extremities Extremities: no ischemia, No edema - Abdominal General gastrointestinal: soft, non-tender, non-distended, normal bowel sounds - Integumentary Integumentary: Present: clear, warm - Psychiatric Psychiatric: appropriate mood/affect, cooperative - Neurologic Neurologic: CNII-XII intact, moves all extremities Results - Labs CBC & Chem 7: 04/10/19 10:56 04/10/19 10:56 Labs: Laboratory Last Values WBC 6.1 K/mm3 (4.5-11.0) 04/10/19 10:56 RBC 2.25 M/mm3 (3.65-5.03) L 04/10/19 10:56 Hgb 7.3 gm/dl (10.1-14.3) L 04/10/19 10:56 Hct 20.2 % (30.3-42.9) L 04/10/19 10:56 MCV 90 fl (79-97) 04/10/19 10:56 MCH 33 pg (28-32) H 04/10/19 10:56 MCHC 36 % (30-34) H 04/10/19 10:56 RDW > 40.0 % (13.2-15.2) H 04/10/19 10:56 Plt Count 188 K/mm3 (140-440) 04/10/19 10:56 [place] % (Auto) 5.0 % (0.0-7.3) 04/09/19 18:28 Eos % (Auto) 0.3 % (0.0-4.3) 04/09/19 18:28 [place] # 0.3 K/mm3 (0.0-0.8) 04/09/19 18:28 Eos # 0.0 K/mm3 (0.0-0.4) 04/09/19 18:28 Baso # 0.0 K/mm3 (0.0-0.1) 04/09/19 18:28 Add Manual Diff Complete 04/10/19 10:56 Total Counted 100 04/10/19 10:56 Seg Neutrophils % 59.3 % (40.0-70.0) 04/09/19 18:28 Seg Neuts % (Manual) 77.0 % (40.0-70.0) H 04/10/19 10:56 Band Neutrophils % 0 % 04/10/19 10:56 Lymphocytes % (Manual) 22.0 % (13.4-35.0) 04/10/19 10:56 Reactive Lymphs % (Man) 0 % 04/10/19 10:56 Monocytes % (Manual) 1.0 % (0.0-7.3) 04/10/19 10:56 Eosinophils % (Manual) 0 % (0.0-4.3) 04/10/19 10:56 Basophils % (Manual) 0 % (0.0-1.8) 04/10/19 10:56 Metamyelocytes % 0 % 04/10/19 10:56 Myelocytes % 0 % 04/10/19 10:56 Promyelocytes % 0 % 04/10/19 10:56 Blast Cells % 0 % 04/10/19 10:56 Nucleated RBC % 1.0 % (0.0-0.9) H 04/10/19 10:56 Seg Neutrophils # 3.0 K/mm3 (1.8-7.7) 04/09/19 18:28 Seg Neutrophils # Man 4.7 K/mm3 (1.8-7.7) 04/10/19 10:56 Band Neutrophils # 0.0 K/mm3 04/10/19 10:56 Lymphocytes # (Manual) 1.3 K/mm3 (1.2-5.4) 04/10/19 10:56 Abs React Lymphs (Man) 0.0 K/mm3 04/10/19 10:56 Monocytes # (Manual) 0.1 K/mm3 (0.0-0.8) 04/10/19 10:56 Eosinophils # (Manual) 0.0 K/mm3 (0.0-0.4) 04/10/19 10:56 Basophils # (Manual) 0.0 K/mm3 (0.0-0.1) 04/10/19 10:56 Metamyelocytes # 0.0 K/mm3 04/10/19 10:56 Myelocytes # 0.0 K/mm3 04/10/19 10:56 Promyelocytes # 0.0 K/mm3 04/10/19 10:56 Blast Cells # 0.0 K/mm3 04/10/19 10:56 WBC Morphology Not Reportable 04/10/19 10:56 Hypersegmented Neuts Not Reportable 04/10/19 10:56 Hyposegmented Neuts Not Reportable 04/10/19 10:56 Hypogranular Neuts Not Reportable 04/10/19 10:56 Smudge Cells Not Reportable 04/10/19 10:56 Toxic Granulation Not Reportable 04/10/19 10:56 Toxic Vacuolation Not Reportable 04/10/19 10:56 Dohle Bodies Not Reportable 04/10/19 10:56 Pelger-Huet Anomaly Not Reportable 04/10/19 10:56 Justin Rods Not Reportable 04/10/19 10:56 Platelet Estimate Consistent w auto 04/10/19 10:56 Clumped Platelets Not Reportable 04/10/19 10:56 Plt Clumps, EDTA Not Reportable 04/10/19 10:56 Large Platelets Few 04/10/19 10:56 Giant Platelets Not Reportable 04/10/19 10:56 Platelet Satelliting Not Reportable 04/10/19 10:56 Plt Morphology Comment Not Reportable 04/10/19 10:56 RBC Morphology Not Reportable 04/10/19 10:56 Dimorphic RBCs Not Reportable 04/10/19 10:56 Polychromasia 1+ 04/10/19 10:56 Hypochromasia Few 04/10/19 10:56 Poikilocytosis Not Reportable 04/10/19 10:56 Anisocytosis 2+ 04/10/19 10:56 Microcytosis 1+ 04/10/19 10:56 Macrocytosis 1+ 04/10/19 10:56 Spherocytes Not Reportable 04/10/19 10:56 Pappenheimer Bodies Not Reportable 04/10/19 10:56 Sickle Cells Not Reportable 04/10/19 10:56 Target Cells Not Reportable 04/10/19 10:56 Tear Drop Cells 1+ 04/10/19 10:56 Ovalocytes 1+ 04/10/19 10:56 Helmet Cells Not Reportable 04/10/19 10:56 [place] Bodies Not Reportable 04/10/19 10:56 [place] Rings Not Reportable 04/10/19 10:56 Maria L Cells Not Reportable 04/10/19 10:56 Bite Cells Not Reportable 04/10/19 10:56 Crenated Cell Not Reportable 04/10/19 10:56 Elliptocytes 1+ 04/10/19 10:56 Acanthocytes (Spur) Not Reportable 04/10/19 10:56 Rouleaux Not Reportable 04/10/19 10:56 Hemoglobin C Crystals Not Reportable 04/10/19 10:56 Schistocytes Rare 04/10/19 10:56 Malaria parasites Not Reportable 04/10/19 10:56 Alexis Bodies Not Reportable 04/10/19 10:56 Hem Pathologist Commnt No 04/10/19 10:56 PT 13.8 Sec. (12.2-14.9) 04/10/19 10:56 INR 1.05 (0.87-1.13) 04/10/19 10:56 APTT 30.7 Sec. (24.2-36.6) 04/10/19 10:56 Sodium 137 mmol/L (137-145) 04/10/19 10:56 Potassium 3.8 mmol/L (3.6-5.0) 04/10/19 10:56 Chloride 103.2 mmol/L (98-107) 04/10/19 10:56 Carbon Dioxide 21 mmol/L (22-30) L 04/10/19 10:56 Anion Gap 17 mmol/L 04/10/19 10:56 BUN 14 mg/dL (7-17) 04/10/19 10:56 Creatinine 0.7 mg/dL (0.7-1.2) 04/10/19 10:56 Estimated GFR > 60 ml/min 04/10/19 10:56 BUN/Creatinine Ratio 20 % 04/10/19 10:56 Glucose 118 mg/dL (65-100) H 04/10/19 10:56 Calcium 8.9 mg/dL (8.4-10.2) 04/10/19 10:56 Iron 80 ug/dL (37-170) 04/09/19 22:47 TIBC 189 mcg/dL (250-450) L 04/09/19 22:47 Ferritin 499.3 ng/mL (13.0-400.0) H 04/09/19 22:47 Vitamin B12 150.0 pg/mL (211-911) L 04/09/19 22:47 Folate 17.85 ng/mL (7.3-26.0) 04/09/19 22:47 HCG, Qual Negative (Negative) 04/09/19 18:28 Urine Color Red (Yellow) 04/09/19 16:30 Urine Turbidity Slightly-cloudy (Clear) 04/09/19 16:30 Urine pH 6.0 (5.0-7.0) 04/09/19 16:30 Ur Specific [place] 1.015 (1.003-1.030) 04/09/19 16:30 Urine Protein 100 mg/dl mg/dL (Negative) 04/09/19 16:30 Urine Glucose (UA) Neg mg/dL (Negative) 04/09/19 16:30 Urine Ketones 20 mg/dL (Negative) 04/09/19 16:30 Urine Blood Lg (Negative) 04/09/19 16:30 Urine Nitrite Neg (Negative) 04/09/19 16:30 Urine Bilirubin Neg (Negative) 04/09/19 16:30 Urine Urobilinogen 4.0 mg/dL (<2.0) 04/09/19 16:30 Ur Leukocyte Esterase Neg (Negative) 04/09/19 16:30 Urine WBC (Auto) 8.0 /HPF (0.0-6.0) H 04/09/19 16:30 Urine RBC (Auto) 4.0 /HPF (0.0-6.0) 04/09/19 16:30 U Epithel Cells (Auto) < 1.0 /HPF (0-13.0) 04/09/19 16:30 Urine Bacteria (Auto) 4+ /HPF (Negative) 04/09/19 16:30 Urine Mucus Few /HPF 04/09/19 16:30 Blood Type O POSITIVE 04/09/19 20:28 Antibody Screen TNR 04/09/19 20:28 AIDEE Antibody Screen Negative 04/09/19 20:28 Crossmatch See Detail 04/09/19 20:28 Active Medications - Current Medications Current Medications: Generic Name Dose Route Start Last Admin Trade Name Freq PRN Reason Stop Dose Admin Acetaminophen 650 mg 04/09/19 21:54 Tylenol PO Q4H PRN Pain MILD(1-3)/Fever >100.5/GUTIÉRREZ Magnesium Hydroxide 30 ml 04/09/19 21:54 Milk Of Magnesia PO Q4H PRN Constipation Ondansetron HCl 4 mg 04/09/19 21:54 Zofran IV Q8H PRN Nausea And Vomiting Sodium Chloride 10 ml 04/09/19 22:00 04/10/19 09:33 Sodium Chloride Flush Syringe 10 Ml IV 10 ml BID CALLIE Administration Sodium Chloride 10 ml 04/09/19 21:54 Sodium Chloride Flush Syringe 10 Ml IV PRN PRN LINE FLUSH
[2019-04-11] MEDS ORDERED: SODIUM CHLORIDE 0.9% 500 ML 500 ML IV ONE (01:46)
[2019-04-11 08:24] LABS: Hemoglobin 8.3 gm/dl (10.1-14.3)
[2019-04-11 08:26] LABS: Hematocrit 23.3 % (30.3-42.9); Hemoglobin 8.3 gm/dl (10.1-14.3); Mean Corpuscular HGB Conc 36 % (30-34); Mean Corpuscular Volume 90 fl (79-97); Platelet Count 140 K/mm3 (140-440); Red Blood Count 2.58 M/mm3 (3.65-5.03)
[2019-04-11 08:28] LABS: Red Cell Distribution Width 36.7 % (13.2-15.2)
--- NOTE | 2019-04-11 08:32 | Discharge Summary ---
Providers - Providers Date of Admission: 04/09/19 21:24 Date of discharge: 04/11/19 Attending physician: STERLING CONRAD Primary care physician: JACKIE CARDONA MD Hospitalization Condition: Fair Core Measure Documentation - Palliative Care Palliative Care/ Comfort Measures: Not Applicable Exam - Constitutional Vitals: Temp Pulse Resp BP Pulse Ox 98.5 F 70 18 102/60 100 04/11/19 06:30 04/11/19 06:30 04/11/19 06:30 04/11/19 06:30 04/11/19 06:30 Plan Follow up with: JACKIE CARDONA MD [Primary Care Provider] - 3-5 Days
[2019-04-11 09:46] LABS: Anisocytosis 2+; Basophils % (Manual) 0 % (0.0-1.8); Macrocytosis 1+; Schistocytes Rare; Total Cells Counted 100
[2019-04-11 09:47] LABS: Large Platelets Few; Ovalocytes 1+; Platelet Estimate Consistent w Auto; Tear Drop Cells 1+
[2019-04-11] MEDS: levoFLOXacin 750 MG TAB PO SCH (14:12)
--- NOTE | 2019-04-11 20:55 | Progress Note ---
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/GI/hepatology upon discharge --Urinary tract infection; empiric antibiotics Cultures positive for gram-negative rods Empiric antibiotics, follow sensitivities, DC on oral antibiotics --Red-colored urine; probably due to diet and medications Urine analysis no RBCs[only 4] --DVT prophylaxis; SCDs Monitor closely and adjust management as needed Plan of care reviewed with the patient and her nurse Disposition; discharge home tomorrow on oral antibiotics when culture sensitivities are available Patient needs to see VETERINARY X RAY OPERATOR/GI/hematology upon discharge For further evaluation History Interval history: Patient seen and examined medical records reviewed Patient received 2 units of PRBC hemoglobin improved to 8.4 Patient also has UTI, symptoms slightly improved Cultures positive for gram-negative rods, pending sensitivities Patient's likely feels better Denies nausea vomiting Vital signs noted Hospitalist Physical - Constitutional Vitals: Temp Pulse Resp BP Pulse Ox 98.2 F 84 18 100/70 100 04/11/19 17:57 04/11/19 17:57 04/11/19 17:57 04/11/19 17:57 04/11/19 17:57 General appearance: Present: no acute distress, well-nourished - EENT Eyes: Present: PERRL, EOM intact - Neck Neck: Present: supple, normal ROM - Respiratory Respiratory effort: normal Respiratory: bilateral: diminished, negative: rales, rhonchi, wheezing - Cardiovascular Rhythm: regular Heart Sounds: Present: S1 & S2 - Extremities Extremities: no ischemia, No edema - Abdominal General gastrointestinal: soft, non-tender, non-distended, normal bowel sounds - Integumentary Integumentary: Present: clear, warm - Psychiatric Psychiatric: appropriate mood/affect, cooperative - Neurologic Neurologic: CNII-XII intact Results - Labs CBC & Chem 7: 04/11/19 07:43 04/10/19 10:56 Labs: Laboratory Last Values WBC 4.2 K/mm3 (4.5-11.0) L 04/11/19 07:43 RBC 2.58 M/mm3 (3.65-5.03) L 04/11/19 07:43 Hgb 8.3 gm/dl (10.1-14.3) L 04/11/19 07:43 Hgb 8.3 gm/dl (10.1-14.3) L 04/11/19 07:43 Hct 23.3 % (30.3-42.9) L 04/11/19 07:43 Hct 24.0 % (30.3-42.9) L 04/11/19 07:43 MCV 90 fl (79-97) 04/11/19 07:43 MCH 32 pg (28-32) 04/11/19 07:43 MCHC 36 % (30-34) H 04/11/19 07:43 RDW 36.7 % (13.2-15.2) H 04/11/19 07:43 Plt Count 140 K/mm3 (140-440) 04/11/19 07:43 Tyler % (Auto) 5.0 % (0.0-7.3) 04/09/19 18:28 Eos % (Auto) 0.3 % (0.0-4.3) 04/09/19 18:28 Tyler # 0.3 K/mm3 (0.0-0.8) 04/09/19 18:28 Eos # 0.0 K/mm3 (0.0-0.4) 04/09/19 18:28 Baso # 0.0 K/mm3 (0.0-0.1) 04/09/19 18:28 Add Manual Diff Complete 04/11/19 07:43 Total Counted 100 04/11/19 07:43 Seg Neutrophils % 59.3 % (40.0-70.0) 04/09/19 18:28 Seg Neuts % (Manual) 60.0 % (40.0-70.0) 04/11/19 07:43 Band Neutrophils % 0 % 04/11/19 07:43 Lymphocytes % (Manual) 33.0 % (13.4-35.0) 04/11/19 07:43 Reactive Lymphs % (Man) 0 % 04/11/19 07:43 Monocytes % (Manual) 5.0 % (0.0-7.3) 04/11/19 07:43 Eosinophils % (Manual) 1.0 % (0.0-4.3) 04/11/19 07:43 Basophils % (Manual) 0 % (0.0-1.8) 04/11/19 07:43 Metamyelocytes % 1.0 % 04/11/19 07:43 Myelocytes % 0 % 04/11/19 07:43 Promyelocytes % 0 % 04/11/19 07:43 Blast Cells % 0 % 04/11/19 07:43 Nucleated RBC % Not Reportable 04/11/19 07:43 Seg Neutrophils # 3.0 K/mm3 (1.8-7.7) 04/09/19 18:28 Seg Neutrophils # Man 2.5 K/mm3 (1.8-7.7) 04/11/19 07:43 Band Neutrophils # 0.0 K/mm3 04/11/19 07:43 Lymphocytes # (Manual) 1.4 K/mm3 (1.2-5.4) 04/11/19 07:43 Abs React Lymphs (Man) 0.0 K/mm3 04/11/19 07:43 Monocytes # (Manual) 0.2 K/mm3 (0.0-0.8) 04/11/19 07:43 Eosinophils # (Manual) 0.0 K/mm3 (0.0-0.4) 04/11/19 07:43 Basophils # (Manual) 0.0 K/mm3 (0.0-0.1) 04/11/19 07:43 Metamyelocytes # 0.0 K/mm3 04/11/19 07:43 Myelocytes # 0.0 K/mm3 04/11/19 07:43 Promyelocytes # 0.0 K/mm3 04/11/19 07:43 Blast Cells # 0.0 K/mm3 04/11/19 07:43 WBC Morphology Not Reportable 04/11/19 07:43 Hypersegmented Neuts Not Reportable 04/11/19 07:43 Hyposegmented Neuts Not Reportable 04/11/19 07:43 Hypogranular Neuts Not Reportable 04/11/19 07:43 Smudge Cells Not Reportable 04/11/19 07:43 Toxic Granulation Not Reportable 04/11/19 07:43 Toxic Vacuolation Not Reportable 04/11/19 07:43 Dohle Bodies Not Reportable 04/11/19 07:43 Pelger-Huet Anomaly Not Reportable 04/11/19 07:43 Justin Rods Not Reportable 04/11/19 07:43 Platelet Estimate Consistent w auto 04/11/19 07:43 Clumped Platelets Not Reportable 04/11/19 07:43 Plt Clumps, EDTA Not Reportable 04/11/19 07:43 Large Platelets Few 04/11/19 07:43 Giant Platelets Not Reportable 04/11/19 07:43 Platelet Satelliting Not Reportable 04/11/19 07:43 Plt Morphology Comment Not Reportable 04/11/19 07:43 RBC Morphology Not Reportable 04/11/19 07:43 Dimorphic RBCs Not Reportable 04/11/19 07:43 Polychromasia 1+ 04/11/19 07:43 Hypochromasia Not Reportable 04/11/19 07:43 Poikilocytosis Not Reportable 04/11/19 07:43 Anisocytosis 2+ 04/11/19 07:43 Microcytosis 1+ 04/11/19 07:43 Macrocytosis 1+ 04/11/19 07:43 Spherocytes Not Reportable 04/11/19 07:43 Pappenheimer Bodies Not Reportable 04/11/19 07:43 Sickle Cells Not Reportable 04/11/19 07:43 Target Cells Not Reportable 04/11/19 07:43 Tear Drop Cells 1+ 04/11/19 07:43 Ovalocytes 1+ 04/11/19 07:43 Helmet Cells Not Reportable 04/11/19 07:43 Alejandro-Gladbrook Bodies Not Reportable 04/11/19 07:43 Grady Rings Not Reportable 04/11/19 07:43 [place] Cells Not Reportable 04/11/19 07:43 Bite Cells Not Reportable 04/11/19 07:43 Crenated Cell Not Reportable 04/11/19 07:43 Elliptocytes 1+ 04/11/19 07:43 Acanthocytes (Spur) Not Reportable 04/11/19 07:43 Rouleaux Not Reportable 04/11/19 07:43 Hemoglobin C Crystals Not Reportable 04/11/19 07:43 Schistocytes Rare 04/11/19 07:43 Malaria parasites Not Reportable 04/11/19 07:43 Alexis Bodies Not Reportable 04/11/19 07:43 Hem Pathologist Commnt No 04/11/19 07:43 PT 13.8 Sec. (12.2-14.9) 04/10/19 10:56 INR 1.05 (0.87-1.13) 04/10/19 10:56 APTT 30.7 Sec. (24.2-36.6) 04/10/19 10:56 Sodium 137 mmol/L (137-145) 04/10/19 10:56 Potassium 3.8 mmol/L (3.6-5.0) 04/10/19 10:56 Chloride 103.2 mmol/L (98-107) 04/10/19 10:56 Carbon Dioxide 21 mmol/L (22-30) L 04/10/19 10:56 Anion Gap 17 mmol/L 04/10/19 10:56 BUN 14 mg/dL (7-17) 04/10/19 10:56 Creatinine 0.7 mg/dL (0.7-1.2) 04/10/19 10:56 Estimated GFR > 60 ml/min 04/10/19 10:56 BUN/Creatinine Ratio 20 % 04/10/19 10:56 Glucose 118 mg/dL (65-100) H 04/10/19 10:56 Calcium 8.9 mg/dL (8.4-10.2) 04/10/19 10:56 Iron 80 ug/dL (37-170) 04/09/19 22:47 TIBC 189 mcg/dL (250-450) L 04/09/19 22:47 Ferritin 499.3 ng/mL (13.0-400.0) H 04/09/19 22:47 Vitamin B12 150.0 pg/mL (211-911) L 04/09/19 22:47 Folate 17.85 ng/mL (7.3-26.0) 04/09/19 22:47 HCG, Qual Negative (Negative) 04/09/19 18:28 Urine Color Red (Yellow) 04/09/19 16:30 Urine Turbidity Slightly-cloudy (Clear) 04/09/19 16:30 Urine pH 6.0 (5.0-7.0) 04/09/19 16:30 Ur Specific [place] 1.015 (1.003-1.030) 04/09/19 16:30 Urine Protein 100 mg/dl mg/dL (Negative) 04/09/19 16:30 Urine Glucose (UA) Neg mg/dL (Negative) 04/09/19 16:30 Urine Ketones 20 mg/dL (Negative) 04/09/19 16:30 Urine Blood Lg (Negative) 04/09/19 16:30 Urine Nitrite Neg (Negative) 04/09/19 16:30 Urine Bilirubin Neg (Negative) 04/09/19 16:30 Urine Urobilinogen 4.0 mg/dL (<2.0) 04/09/19 16:30 Ur Leukocyte Esterase Neg (Negative) 04/09/19 16:30 Urine WBC (Auto) 8.0 /HPF (0.0-6.0) H 04/09/19 16:30 Urine RBC (Auto) 4.0 /HPF (0.0-6.0) 04/09/19 16:30 U Epithel Cells (Auto) < 1.0 /HPF (0-13.0) 04/09/19 16:30 Urine Bacteria (Auto) 4+ /HPF (Negative) 04/09/19 16:30 Urine Mucus Few /HPF 04/09/19 16:30 Blood Type O POSITIVE 04/09/19 20:28 Antibody Screen TNR 04/09/19 20:28 AIDEE Antibody Screen Negative 04/09/19 20:28 Crossmatch See Detail 04/09/19 20:28 Active Medications - Current Medications Current Medications: Generic Name Dose Route Start Last Admin Trade Name Freq PRN Reason Stop Dose Admin Acetaminophen 650 mg 04/09/19 21:54 04/10/19 21:31 Tylenol PO 650 mg Q4H PRN Administration Pain MILD(1-3)/Fever >100.5/GUTIÉRREZ Levofloxacin 750 mg 04/11/19 13:30 04/11/19 14:12 Levaquin PO 750 mg Q24HR CALLIE Administration Magnesium Hydroxide 30 ml 04/09/19 21:54 04/11/19 09:42 Milk Of Magnesia PO 30 ml Q4H PRN Administration Constipation Ondansetron HCl 4 mg 04/09/19 21:54 Zofran IV Q8H PRN Nausea And Vomiting Sodium Chloride 10 ml 04/09/19 22:00 04/11/19 09:42 Sodium Chloride Flush Syringe 10 Ml IV 10 ml BID CALLIE Administration Sodium Chloride 10 ml 04/09/19 21:54 Sodium Chloride Flush Syringe 10 Ml IV PRN PRN LINE FLUSH
[2019-04-12] MEDS: levoFLOXacin 750 MG TAB PO SCH (09:45)
[2019-04-12 12:48] VITALS: BP 82/48
--- NOTE | 2019-04-12 14:12 | Discharge Summary ---
Providers - Providers Date of Admission: 04/09/19 21:24 Attending physician: CHIQUI CUELLO Primary care physician: JACKIE CARDONA MD Hospitalization Condition: Fair Core Measure Documentation - Palliative Care Palliative Care/ Comfort Measures: Not Applicable Exam - Constitutional Vitals: Temp Pulse Resp BP Pulse Ox 98.3 F 86 16 82/48 97 04/12/19 11:17 04/12/19 11:17 04/12/19 11:17 04/12/19 11:17 04/12/19 11:17 Plan Follow up with: PRIMARY MD BRENDAN [Primary Care Provider] - 3-5 Days Prescriptions: Ciprofloxacin HCl [Ciprofloxacin TAB] 500 mg PO Q12HR #14 tab
== END 2019-04-12 15:45 | disposition home or self-care (01) ==
LOC: ED 16:57 → 3A 21:24
PROVIDERS: ADMIT Internal Medicine Geriatric Medicine; ATTEND Internal Medicine
DX: D64.9 Anemia, unspecified (principal); R42 Dizziness and giddiness
CPT/HCPCS: 36415; 36430; 71045; 80048; 81001; 82607; 82728; 82747; 83550; 84703; 85007; 85014; 85018; 85025; 85610; 85730; 86850; 86900; 86901; 87076; 87086; 87186; 93005; 93010; 99291; G0378; J7040; P9016

== ENCOUNTER 2020-02-26 20:58 | Emergency (ER) | payer SELFPAY ==
[2020-02-26 21:44] LABS: Alanine Aminotransferase 40 units/L (7-56); Albumin 3.9 g/dL (3.9-5); BUN/Creatinine Ratio 11; Blood Urea Nitrogen 9 mg/dL (7-17); Calcium 8.9 mg/dL (8.4-10.2); Hematocrit 22.9 % (30.3-42.9); Hemoglobin 7.6 gm/dl (10.1-14.3); Hemolysis Index 2; Mean Corpuscular HGB Conc 33 % (30-34); Mean Corpuscular Volume 107 fl (79-97); Platelet Count 178 K/mm3 (140-440); Red Blood Count 2.15 M/mm3 (3.65-5.03)
--- NOTE | 2020-02-26 21:50 | XRay Report ---
CHEST 2 VIEWS INDICATION / CLINICAL INFORMATION: SARAH. COMPARISON: 04/09/2019. FINDINGS: SUPPORT DEVICES: None. HEART / MEDIASTINUM: No significant abnormality. LUNGS / PLEURA: No significant pulmonary or pleural abnormality. No pneumothorax. ADDITIONAL FINDINGS: No significant additional findings. IMPRESSION: No acute cardiopulmonary abnormality. Signer Name: Ken Poon MD Signed: 02/26/2020 9:45 PM Workstation Name: [id number]
[2020-02-26 21:55] LABS: Red Cell Distribution Width 32.4 % (13.2-15.2)
[2020-02-26 22:47] LABS: Anisocytosis 1+; Basophils % (Manual) 0 % (0.0-1.8); Dimorphic RBC Yes; Large Platelets Few; Macrocytosis 1+; Ovalocytes 1+; Schistocytes Rare; Tear Drop Cells 1+; Total Cells Counted 100
--- NOTE | 2020-02-27 03:26 | Emergency Department Report ---
- General Chief complaint: Dyspnea/Respdistress Stated complaint: WEAKNESS, SHORT OF BREATH Time Seen by Provider: 02/27/20 03:06 Source: patient Mode of arrival: Wheelchair Limitations: No Limitations - History of Present Illness Initial comments: 35-year-old female with history of anemia presents to ED with generalized weakness and shortness of breath x2 days. Patient states the last time this happened her following she required blood transfusion. Patient reports her menstrual period just began on yesterday. She states it is no heavier than usual. She denies any fever, cough, chest pain, vomiting, diarrhea. Patient reports she is not taking any iron pills. MD Complaint: generalized weakness -: days(s) (2) Location: generalized Severity: moderate Quality: constant Consistency: constant Improves with: none Worsens with: none Associated Symptoms: shortness of breath. denies: chest pain, fever/chills, nausea/vomiting - Related Data Home Medications Medication Instructions Recorded Confirmed Last Taken Cyanocobalamin (Vitamin B-12) 2,000 mcg PO DAILY 04/10/19 04/10/19 Unknown [Vitamin B-12] Previous Rx's Medication Instructions Recorded Last Taken Type Ciprofloxacin HCl [Ciprofloxacin 500 mg PO Q12HR #14 tab 04/12/19 Unknown Rx TAB] Allergies Allergy/AdvReac Type Severity Reaction Status Date / Time Penicillins Allergy Unknown Verified 04/09/19 17:02 ED Review of Systems ROS: Stated complaint: WEAKNESS, SHORT OF BREATH Other details as noted in HPI Comment: All other systems reviewed and negative Constitutional: denies: chills, fever Respiratory: shortness of breath. denies: cough Cardiovascular: denies: chest pain Gastrointestinal: denies: abdominal pain, vomiting, diarrhea ED Past Medical Hx - Past Medical History Hx Congestive Heart Failure: No Hx Diabetes: No Hx Asthma: No Hx COPD: No Hx HIV: No Additional medical history: anemia - Surgical History Additional Surgical History: - Social History Smoking Status: Never Smoker Substance Use Type: None - Medications Home Medications: Home Medications Medication Instructions Recorded Confirmed Last Taken Type Cyanocobalamin (Vitamin B-12) 2,000 mcg PO DAILY 04/10/19 04/10/19 Unknown History [Vitamin B-12] Ciprofloxacin HCl [Ciprofloxacin 500 mg PO Q12HR #14 tab 04/12/19 Unknown Rx TAB] ED Physical Exam - General Limitations: No Limitations General appearance: alert, in no apparent distress - Head Head exam: Present: atraumatic, normocephalic - Eye Eye exam: Present: normal appearance, EOMI - ENT ENT exam: Present: mucous membranes moist - Neck Neck exam: Present: normal inspection - Respiratory Respiratory exam: Present: normal lung sounds bilaterally. Absent: respiratory distress - Cardiovascular Cardiovascular Exam: Present: regular rate, normal rhythm - GI/Abdominal GI/Abdominal exam: Present: soft. Absent: distended, tenderness - Extremities Exam Extremities exam: Present: normal inspection - Neurological Exam Neurological exam: Present: alert, oriented X3 - Psychiatric Psychiatric exam: Present: normal affect, normal mood - Skin Skin exam: Present: warm, dry, intact, normal color ED Course Vital Signs 02/26/20 02/27/20 02/27/20 21:04 01:30 01:35 Temperature 98.2 F 97.7 F Pulse Rate 84 73 73 Respiratory 18 17 17 Rate Blood Pressure 97/63 103/63 Blood Pressure 103/63 [Left] O2 Sat by Pulse 97 90 Oximetry 02/27/20 02/27/20 02/27/20 01:45 02:00 02:15 Temperature Pulse Rate 71 69 74 Respiratory 22 19 16 Rate Blood Pressure 102/59 112/64 113/60 Blood Pressure [Left] O2 Sat by Pulse 94 94 97 Oximetry 02/27/20 02/27/20 02/27/20 02:30 03:00 03:15 Temperature Pulse Rate 70 72 73 Respiratory 17 18 18 Rate Blood Pressure 112/65 117/75 115/67 Blood Pressure [Left] O2 Sat by Pulse 96 98 98 Oximetry 02/27/20 03:30 Temperature Pulse Rate 77 Respiratory 13 Rate Blood Pressure 103/67 Blood Pressure [Left] O2 Sat by Pulse 96 Oximetry ED Medical Decision Making - Lab Data Result diagrams: 02/26/20 21:08 02/26/20 21:08 - Radiology Data Radiology results: report reviewed, image reviewed - Medical Decision Making Patient with hemoglobin of 7.6. Not quite low enough for transfusion at this time. Vitals are stable. Patient does not have a microcytic anemia, as her MCV is 107. Will not prescribe any iron at this time. Patient advised to follow- up with a aerodynamics teacher and primary care physician. Return precautions given. - Differential Diagnosis Anemia Critical care attestation.: If time is entered above; I have spent that time in minutes in the direct care of this critically ill patient, excluding procedure time. ED Disposition Clinical Impression: Anemia Disposition: DC-01 TO HOME OR SELFCARE Is pt being admited?: No Condition: Stable Instructions: Vitamin B12 Deficiency Referrals: [facility] [Provider Group] - 3-5 Days [facility] [Outside] - 3-5 Days AMEE OKEEFE MD [Staff Physician] - 3-5 Days MARIVEL OLVERA JR, MD [Staff Physician] - 3-5 Days TONY ZUNIGA DO [Staff Physician] - 3-5 Days Time of Disposition: 03:35
[2020-02-27 03:37] VITALS: BP 103/67
== END 2020-02-27 03:45 | disposition home or self-care (01) ==
LOC: ED 20:58
DX: D64.9 Anemia, unspecified (principal); Z88.0 Allergy status to penicillin; Z79.899 Other long term (current) drug therapy; Z98.890 Other specified postprocedural states
CPT/HCPCS: 36415; 71046; 80053; 85007; 85025

== ENCOUNTER 2021-12-27 16:28 | Emergency (ER) | payer OTHER ==
[2021-12-27 16:40] VITALS: BP 108/81
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
[2021-12-27] MEDS ORDERED: ACETAMINOPHEN 325 MG TAB PO ONE (17:48)
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
--- NOTE | 2021-12-27 17:50 | Cat Scan Report ---
CT HEAD WITHOUT CONTRAST INDICATION / CLINICAL INFORMATION: trauma. TECHNIQUE: All CT scans at this location are performed using CT dose reduction for ALARA by means of automated e xposure control. COMPARISON: None available. FINDINGS: HEMORRHAGE: No evidence of intracranial hemorrhage or extra-axial fluid collection. EXTRA-AXIAL SPACES: Cortical sulci, sylvian fissures and basilar cisterns have an unremarkable appear ance. VENTRICULAR SYSTEM: The third and lateral ventricles are of normal size and configuration. CEREBRAL PARENCHYMA: No areas of abnormal brain parenchymal attenuation are identified. There is no i ndication of recent infarction. MIDLINE SHIFT OR HERNIATION: There is no mass effect. CEREBELLUM / BRAINSTEM: Brainstem and cerebellum have an unremarkable appearance. MIDLINE STRUCTURES:No abnormalities of the pituitary gland or pineal region are identified. INTRACRANIAL VESSELS:No abnormalities are identified on this noncontrast head CT. SOFT TISSUES of HEAD: No significant abnormality. CALVARIUM: Evaluation of bone windows reveals no abnormalities. ADDITIONAL FINDINGS: None. IMPRESSION: 1. No significant intracranial abnormality. CT MAXILLOFACIAL WITHOUT CONTRAST INDICATION / CLINICAL INFORMATION: trauma. TECHNIQUE: All CT scans at this location are performed using CT dose reduction for ALARA by means of automated e xposure control. COMPARISON: None available. FINDINGS: FACIAL BONES: Depressed fractures of the nasal bones and frontal process of the right maxilla are obs erved. Anterior maxillary spine is intact. No additional facial fractures are identified. MOBILE PET GROOMER SPACES:Evaluation of the forest ecologist space structures reveal no abnormalities. SALIVARY GLANDS: Parotid and submandibular salivary glands have a normal appearance. PARANASAL SINUSES: Paranasal sinuses are free from inflammatory mucosal disease. NASAL CAVITY: Near midline nasal septum is noted. Pneumatization of the middle turbinates is observed extending the turbinates, right greater than left, decreasing the volume of the air passageways the nasal cavity. Air passageways of the OM U remain aerated. ORBITS: Globes, optic nerves and extraocular muscles have an unremarkable appearance. TEMPORAL BONES:Decreased pneumatization of the mastoid air cells is noted bilaterally. This is on a d evelopmental basis. The existing mastoid air cells appear clear. IMPRESSION: 1. Depressed nasal bone fractures and fracture of the frontal process of the maxilla on the right. Signer Name: Milo Fitzgerald MD Signed: 12/27/2021 5:46 PM Workstation Name: [id number]
[2021-12-27] MEDS ORDERED: LIDOCAINE (2%) 20 MG/1 ML VIAL 20 ML MDV INFILTRATI ONE (17:55)
== END 2021-12-27 20:00 | disposition home or self-care (01) ==
LOC: ED 16:28
DX: S02.2XXA Fracture of nasal bones, initial encounter for closed fracture (principal); S02.92XA Unspecified fracture of facial bones, initial encounter for closed fracture; S01.81XA Laceration without foreign body of other part of head, initial encounter; Y08.89XA Assault by other specified means, initial encounter; Y93.89 Activity, other specified; Y92.89 Other specified places as the place of occurrence of the external cause; Y99.8 Other external cause status
CPT/HCPCS: 70450; 70486; 99284; J3490